=== PATIENT | male | born 1965 | race Caucasian/White ===

== ENCOUNTER 2023-06-05 12:11 | Observation (INO) | payer BC, OTHER ==
[~2023-06-05] VITALS: Ht 190.5 cm; Wt 89.1 kg
[2023-06-05] MEDS ORDERED: ECOT81TA5 PO ×2 (12:29→15:47)
[2023-06-05] MEDS ORDERED: ATOR1TAB21 PO (12:29)
[2023-06-05] MEDS ORDERED: FLOM0.4C39 PO (12:29)
[2023-06-05] MEDS ORDERED: ALEN70TA82 PO ×2 (12:29→15:47)
[2023-06-05] MEDS ORDERED: LEVO112T2 PO (12:30)
[2023-06-05] MEDS ORDERED: METO200T28 PO (12:33)
[2023-06-05] MEDS ORDERED: HYDR-4468 PO ×2 (12:35)
[2023-06-05 13:06] LABS: BASO # 0.1 10^3/uL (0.0-0.2); BASO % 0.8 % (0.0-1.0); EOS # 0.2 10^3/uL (0.0-0.5); EOS % 2.9 % (0.0-3.0); HEMATOCRIT 35.9 % (42.0-52.0); LYMPH # 1.2 10^3/uL (1.5-5.0); LYMPH % 16.3 % (24.0-44.0); MEAN CORPUSCULAR HEMOGLOBIN 32.1 pg (27.0-33.0); MEAN CORPUSCULAR HGB CONC 33.4 g/dl (32.0-36.5); MONO # 0.2 10^3/uL (0.0-0.8); MONO % 3.1 % (2.0-8.0); NEUTROPHILS # 5.7 10^3/uL (1.5-8.5); NEUTROPHILS % 76.8 % (36.0-66.0); PLATELET COUNT, AUTOMATED 188 10^3/uL (150-450); RED BLOOD COUNT 3.74 10^6/uL (4.30-6.10); WHITE BLOOD COUNT 7.5 10^3/uL (4.0-10.0)
[2023-06-05 13:16] LABS: INR 1.06; PROTHROMBIN TIME 13.5 SECONDS (12.5-14.5)
[2023-06-05 13:34] LABS: BLOOD UREA NITROGEN 21 MG/DL (9-23); CALCIUM LEVEL 8.1 MG/DL (8.5-10.1); CARBON DIOXIDE LEVEL 26 MMOL/L (20-31); CHLORIDE LEVEL 106 MMOL/L (98-107); CK-MB VALUE MASS < 1.0 NG/ML (<3.6); CPK CREATINE PHOSPHOKINASE 78 U/L (46-171); CREATININE FOR GFR 1.19 MG/DL (0.70-1.30); GLOMERULAR FILTRATION RATE > 60.0 (>56); GLUCOSE, FASTING 93 MG/DL (60-100); MAGNESIUM LEVEL 1.9 MG/DL (1.8-2.4); MB/CK RELATIVE INDEX 1.28 (< OR =4); POTASSIUM SERUM 4.2 MMOL/L (3.5-5.1); SODIUM LEVEL 138 MMOL/L (136-145)
[2023-06-05 13:35] LABS: THYROID STIMULATING HORMONE 0.912 uIU/ML (0.55-4.78)
[2023-06-05 13:36] LABS: FREE T4 0.99 NG/DL (0.89-1.76)
[2023-06-05 13:40] LABS: RSV AMPLIFICATION NEGATIVE (NEGATIVE)
[2023-06-05] MEDS ORDERED: MED REC IN PROGRESS XX SCH (15:25)
[2023-06-05] MEDS ORDERED: MOM 30ML SUSPENSION UDC PO PRN (15:30)
[2023-06-05] MEDS ORDERED: VITMTA PO (15:47)
[2023-06-05] MEDS ORDERED: LEVO75TA4 PO (15:47)
[2023-06-05] MEDS ORDERED: CALC-190 PO (15:47)
[2023-06-05] MEDS ORDERED: VITA100T59 PO (15:47)
[2023-06-05] MEDS ORDERED: METO1TAB32 PO (15:47)
[2023-06-05] MEDS ORDERED: HOME MED LIST COMPLETE! XX SCH (15:55)
[2023-06-05] MEDS: DOCUSATE SODIUM 100MG CAPSULE PO SCH (21:00)
[2023-06-05 21:15] VITALS: BP 134/78; TEMP 98.5; O2SAT 97
[2023-06-05] MEDS: ACETAMINOPHEN TAB 650MG DOSE (2X325MG) PO PRN (22:32)
[2023-06-05] MEDS: RAMELTEON 8 MG TAB (ROZEREM) PO PRN (22:32)
[2023-06-06] VITALS (7 sets, daily range): BP systolic 105–139; BP diastolic 55–92; TEMP 96.4–98.5; O2SAT 96–100
[2023-06-06 06:04] LABS: HEMATOCRIT 36.8 % (42.0-52.0); HEMOGLOBIN 12.4 g/dl (13.5-17.5); MEAN CORPUSCULAR HEMOGLOBIN 32.2 pg (27.0-33.0); MEAN CORPUSCULAR HGB CONC 33.7 g/dl (32.0-36.5); MEAN CORPUSCULAR VOLUME 95.6 fl (80.0-96.0); PLATELET COUNT, AUTOMATED 203 10^3/uL (150-450); RED BLOOD COUNT 3.85 10^6/uL (4.30-6.10); WHITE BLOOD COUNT 6.4 10^3/uL (4.0-10.0)
[2023-06-06 06:22] LABS: BLOOD UREA NITROGEN 18 MG/DL (9-23); CALCIUM LEVEL 8.7 MG/DL (8.5-10.1); CARBON DIOXIDE LEVEL 27 MMOL/L (20-31); CHLORIDE LEVEL 109 MMOL/L (98-107); CREATININE FOR GFR 1.15 MG/DL (0.70-1.30); GLOMERULAR FILTRATION RATE > 60.0 (>56); GLUCOSE, FASTING 98 MG/DL (60-100); POTASSIUM SERUM 3.6 MMOL/L (3.5-5.1); SODIUM LEVEL 143 MMOL/L (136-145)
[2023-06-06] MEDS: ACETAMINOPHEN TAB 650MG DOSE (2X325MG) PO PRN ×2 (07:49→21:52)
[2023-06-06] MEDS: HYDROCORTISONE 10 MG TAB PO SCH (08:43)
[2023-06-06] MEDS: RIVAROXABAN 10MG TAB (XARELTO) PO SCH (08:43)
[2023-06-06] MEDS: MULTIVITAMINS/MINERALS THERAP 1 TAB PO SCH (08:43)
[2023-06-06] MEDS: ASPIRIN 81MG ENTERIC TABLET PO SCH (08:43)
[2023-06-06] MEDS: METOPROLOL SUCC *XL* 25MG TAB (TopROL *XL*) PO SCH (08:44)
[2023-06-06] MEDS: DOCUSATE SODIUM 100MG CAPSULE PO SCH ×2 (08:50→20:00)
[2023-06-06] MEDS ORDERED: TAMSULOSIN 0.4 MG CAP PO SCH ×2 (09:00→16:00)
[2023-06-06] MEDS ORDERED: ATORVASTATIN 20 MG TAB PO SCH ×2 (09:00→16:00)
[2023-06-06] MEDS ORDERED: LEVOTHYROXINE 75MCG TABLET (0.075MG) PO SCH (09:00)
[2023-06-06] MEDS ORDERED: HYDROCORTISONE 10 MG TAB PO ONE (09:00)
[2023-06-06] MEDS: LEVOTHYROXINE 75MCG TABLET (0.075MG) PO SCH (11:08)
[2023-06-06] MEDS ORDERED: HYDROCORTISONE 10 MG TAB PO SCH (21:00)
[2023-06-06] MEDS: RAMELTEON 8 MG TAB (ROZEREM) PO PRN (21:47)
[2023-06-07 06:00] VITALS: BP 111/54; TEMP 97.9; O2SAT 98
[2023-06-07 09:00] VITALS: BP 120/65
[2023-06-07] MEDS: METOPROLOL SUCC *XL* 25MG TAB (TopROL *XL*) PO SCH (09:00)
[2023-06-07] MEDS: DOCUSATE SODIUM 100MG CAPSULE PO SCH (09:00)
[2023-06-07] MEDS: MULTIVITAMINS/MINERALS THERAP 1 TAB PO SCH (09:30)
[2023-06-07] MEDS: HYDROCORTISONE 10 MG TAB PO SCH (09:31)
[2023-06-07] MEDS: RIVAROXABAN 10MG TAB (XARELTO) PO SCH (09:32)
[2023-06-07] MEDS: LEVOTHYROXINE 75MCG TABLET (0.075MG) PO SCH (09:32)
[2023-06-07] MEDS: ASPIRIN 81MG ENTERIC TABLET PO SCH (09:32)
== END 2023-06-07 12:34 | disposition home or self-care (01) ==
LOC: M ED 12:11 → EDBD 12:11 → M ED INP 12:12 → ENRESERV 19:51 → M PCU 21:00 → M MS4PR 06-06 20:40
PROVIDERS: ADMIT Student in an Organized Health Care Education/Training Program; ATTEND Student in an Organized Health Care Education/Training Program
DX: R55 Syncope and collapse (principal); R42 Dizziness and giddiness; I48.91 Unspecified atrial fibrillation; Z98.890 Other specified postprocedural states; E23.0 Hypopituitarism; E03.9 Hypothyroidism, unspecified; E27.40 Unspecified adrenocortical insufficiency; N40.0 Benign prostatic hyperplasia without lower urinary tract symptoms; E78.5 Hyperlipidemia, unspecified; M81.0 Age-related osteoporosis without current pathological fracture; Z85.848 Personal history of malignant neoplasm of other parts of nervous tissue; H90.5 Unspecified sensorineural hearing loss; Z92.3 Personal history of irradiation; Z96.21 Cochlear implant status; F41.9 Anxiety disorder, unspecified; F32.A Depression, unspecified; Z79.899 Other long term (current) drug therapy; Z79.890 Hormone replacement therapy; Z79.82 Long term (current) use of aspirin

== ENCOUNTER 2024-03-05 18:05 | Emergency (ER) | payer OTHER ==
[~2024-03-05 18:05] MED LIST: ALEN70TA82 PO; ATOR1TAB21 PO; CALC-190 PO; ECOT81TA5 PO; FLOM0.4C39 PO; HYDR-4468 PO; LEVO112T2 PO; LEVO75TA4 PO; METO1TAB32 PO; METO200T15 PO; VITA100T59 PO; VITMTA PO
== END 2024-03-05 18:14 | disposition left against medical advice (07) ==
LOC: M ED 18:05
DX: Z53.21 Procedure and treatment not carried out due to patient leaving prior to being seen by health care provider (principal)